=== PATIENT | female | born 1990 | race Caucasian/White ===

== ENCOUNTER 2017-10-09 10:47 | Emergency (ER) | payer MEDICARE, MEDICAID ==
[~2017-10-09] VITALS: Ht 160 cm; Wt 45.0 kg
[~2017-10-09 10:47] MED LIST: CYCL-1 PO; SUCR1ORA2 PO
[2017-10-09 13:09] VITALS: BP 138/62
== END 2017-10-09 13:09 | disposition home or self-care (01) ==
LOC: ER 10:48
DX: M79.652 Pain in left thigh (principal)
CPT/HCPCS: 73552; 99284

== ENCOUNTER 2017-10-09 13:25 | Emergency (ER) | payer OTHER, MEDICARE, MEDICAID ==
[~2017-10-09] VITALS: Ht 160 cm; Wt 45.0 kg
[2017-10-09 15:31] VITALS: BP 127/69
== END 2017-10-09 15:32 | disposition home or self-care (01) ==
LOC: ER 13:31
DX: Z00.00 Encounter for general adult medical examination without abnormal findings (principal)
CPT/HCPCS: 99281

== ENCOUNTER 2019-05-02 04:14 | Emergency (ER) | payer MEDICARE, MEDICAID ==
[~2019-05-02] VITALS: Ht 160 cm; Wt 46.8 kg
[~2019-05-02 04:14] MED LIST changes: +DIFL500T PO
[2019-05-02 04:16] VITALS: BP 126/94
--- NOTE | 2019-05-02 04:49 | NUR ---
PT REPORTS CALLING PMD, WARREN ARGUELLO AT [facility], DURING MIDDLE OF NIGHT AND STATES SAUNDRA TOLD HER TO GO TO [facility] ER DUE TO HER SYMPTOMS AND ALL MEDICAL RECORDS AT [facility]. PT ORIENTED THAT SHE IS AT [facility] AND PT BEGAN CRYING STATING SHE IS IN SO MUCH PAIN SHE JUST CAME TO NEAREST ER. DURING ASSESSMENT PT HAD TANGENTIAL THOUGHT PROCESSES. PT CC "SPLEEN PAIN", POINTING TO RIGHT LOWER QUADRANT, "THAT MOVES UP TO LEFT ARMPIT". PT REPORTS FEELINGS THAT "SPLEEN IS FULL OF SEPTIC". UPON PALPATION OF ARMPIT, PT REPORTS BURSITIS IN SHOULDER AND KNEES. PT THEN STATED "I HAD TO CALL APD ON MY DOCTOR AT [facility]" AND THAT SHE SEES A COUNSELOR NEARBY. PT THEN STATES "SOMEONE PEED IN ME AND NOW I KNOW I HAVE UTI". PT DENIES SUBSTANCE USE, BUT STATES HOSPITALIZED 19 YEARS AGO AND IN ICU FOR A WEEK - PT COULDNT STATE FOR WHAT SPECIFIC DISEASE/ILLNESS.
[2019-05-02 05:07] LABS: COLOR,URINE YELLOW (Yellow); GLUCOSE, URINE NEGATIVE (Neg); KETONES,URINE NEGATIVE (Neg); LEUKOCYTE ESTERASE ,URINE NEGATIVE (Neg); NITRITES, URINE NEGATIVE (Neg); OCCULT BLOOD,URINE LARGE (Neg); PROTEIN,URINE TRACE mg/dl (Neg)
[2019-05-02 05:11] LABS: BACTERIA,URINE FEW /HPF (Neg); CAL OXALATE CRYSTALS 2+ /HPF (NEGATIVE); CLARITY,URINE SLIGHTLY CLOUDY (Clear); SQUAMOUS EPITHELIAL CELL,UR FEW /LPF (FEW); UA COLLECTION TYPE CLN CATCH MIDSTREAM; WBC,URINE NONE SEEN /HPF (0-4)
[2019-05-02 05:21] LABS: URINE HCG NEGATIVE (NEG)
[2019-05-02 05:31] LABS: URINE AMPHETAMINE SCREEN NEGATIVE (Neg); URINE BARBITUATE SCREEN NEGATIVE (Neg); URINE BENZODIAZEPINES SCREEN NEGATIVE (Neg); URINE CANNABINOID SCREEN POSITIVE (Neg); URINE COCAINE SCREEN NEGATIVE (Neg); URINE METHADONE SCREEN NEGATIVE (Neg); URINE OPIATE SCREEN NEGATIVE (Neg); URINE PHENCYCLIDINE SCREEN NEGATIVE (Neg)
== END 2019-05-02 05:39 | disposition home or self-care (01) ==
LOC: ER 04:15
DX: R10.31 Right lower quadrant pain (principal); R07.89 Other chest pain; R20.2 Paresthesia of skin; J13 Pneumonia due to Streptococcus pneumoniae; G89.29 Other chronic pain; Z79.899 Other long term (current) drug therapy
CPT/HCPCS: 80305; 81001; 81025; 99283

== ENCOUNTER 2020-03-14 07:49 | Day surgery (SDC) | payer MEDICARE, MEDICAID ==
[2020-03-06 12:12] LABS: BASOPHILS % (AUTO) 0.6 % (0-1); EOSINOPHILS # (AUTO) 0.4 X10'3 (0-0.9); EOSINOPHILS % (AUTO) 6.6 % (0-6); LYMPHOCYTES # (AUTO) 1.6 X10'3 (1.1-4.8); LYMPHOCYTES % (AUTO) 26.7 % (21-51); MEAN CORPUSCULAR HEMOGLOBIN 31.8 PG (27.0-31.0); MEAN CORPUSCULAR HGB CONC 33.1 g/dL (33.0-36.5); MEAN CORPUSCULAR VOLUME 95.9 FL (78-98); MEAN PLATELET VOLUME 8.6 FL (7.4-10.4); MONOCYTES # (AUTO) 0.5 X10'3 (0-0.9); MONOCYTES % (AUTO) 7.3 % (2-12); NEUTROPHILS # (AUTO) 3.6 X10'3 (1.8-7.7); NEUTROPHILS % (AUTO) 58.8 % (42-75); PRE OP HEMOGLOBIN 13.6 g/dL (12.0-16.0); PRE OP PLATELET COUNT 315 X10'3 (140-440); RED BLOOD COUNT 4.28 X10'6 (4.20-5.60); RED CELL DISTRIBUTION WIDTH 12.8 % (11.5-14.5)
[2020-03-06 12:20] LABS: PRE OP PROTIME 10.5 SECONDS (9.0-12.0)
[2020-03-06 12:26] LABS: ALBUMIN 4.1 G/DL (3.4-5.0); ALBUMIN/GLOBULIN RATIO 1.1 (1.1-1.5); ALKALINE PHOSPHATASE 65 IU/L (46-116); BLOOD UREA NITROGEN 14 MG/DL (7-18); BUN/CREATININE RATIO 20.9 (6.6-38.0); CHLORIDE 105 MMOL/L (99-107); CREATININE 0.67 MG/DL (0.40-0.90); PRE OP ALT 16 U/L (30-65); PRE OP ANION GAP 9 (8-16); PRE OP AST 16 U/L (10-37); PRE OP BILIRUB, TOTAL 0.4 MG/DL (0.0-1.0); PRE OP GLUCOSE 84 MG/DL (70-104); PRE OP POTASSIUM 3.9 MMOL/L (3.4-5.1); PRE OP SODIUM 141 MMOL/L (135-145); TOTAL CARBON DIOXIDE 27.4 MMOL/L (24-32); eGFR > 90 ML/MIN
[2020-03-14] VITALS (9 sets, daily range): BP systolic 109–147; BP diastolic 58–90
[~2020-03-14] VITALS: Ht 160 cm; Wt 61.4 kg
[~2020-03-14 07:49] MED LIST changes: +BUPIVAcaine 0.5% W/EPI /PF 30ml vial ONE; -CYCL-1 PO; -DIFL500T PO; +LIDOcaine 1% W/epiNEPHrine 1:100,000 20ml vial ONE; +NO HOME MEDS; -SUCR1ORA2 PO; +cefTAZidime 1gm inj ONE; +cocaine 4% topical solution 4ml bottle ONE; +famotidine 20mg tablet PO ONE; +methylPREDNISolone acetate 80mg/ml inj**IM only ONE; +mupirocin 2% ointment 22GM ONE; +oxymetazoline 15 ML nasal spray NS ONE; +ringers solution, lacted 1,000 ML IV SCH
[2020-03-14] MEDS ORDERED: ringers solution, lacted 1,000 ML IV SCH (10:46)
[2020-03-14] MEDS ORDERED: labetalol 20mg/4ml (5mg/ml) syringe IV PRN (10:50)
[2020-03-14] MEDS ORDERED: morphine 2 MG/ML inj. syringe IV PRN (10:50)
[2020-03-14] MEDS ORDERED: ondansetron/PF 4mg/2ml inj IV PRN (10:50)
[2020-03-14] MEDS ORDERED: hydrALAZINE 20mg/ml inj. IV PRN (10:50)
[2020-03-14] MEDS ORDERED: fentaNYL/PF 50MCG/1 ML 2ML syringe IV PRN ×2 (10:50)
[2020-03-14] MEDS ORDERED: morphine 4 MG/ML inj SYRINge IV PRN (10:50)
[2020-03-14] MEDS ORDERED: midazolam 2 mg/2 ml injection ONE ×2 (10:56→12:31)
[2020-03-14] MEDS ORDERED: fentaNYL/PF 50MCG/1 ML 2ML syringe ONE (10:56)
[2020-03-14] MEDS ORDERED: sevoflurane 250ml liquid IH ONE (10:57)
[2020-03-14] MEDS ORDERED: LIDOcaine 2% (20mg/ml) 5ml vial ONE (10:57)
[2020-03-14] MEDS ORDERED: propofol inj 20 ML IV ONE (10:57)
[2020-03-14] MEDS ORDERED: dexamethasone sod phosphate 10mg/ml inj ONE (10:57)
[2020-03-14] MEDS ORDERED: ondansetron/PF 4mg/2ml inj ONE (10:57)
[2020-03-14] MEDS ORDERED: morphine 10mg/ml inj. ONE (11:40)
[2020-03-14] MEDS ORDERED: labetalol 20mg/4ml (5mg/ml) syringe IV ONE (11:58)
--- NOTE | 2020-03-14 12:30 | NUR ---
Received from OR via BED , accompanied by Anesthesiologist DR HUTCHINSON and report given by Anesthesiolgist. PATIENT WAKING UP, DENIES PAIN, V/S WNL, CSM INTACT, 20G PIV TO RUE, COTTONOID PACKING TO BILATERALLY SINUSES WITH NO ACTIVE DRAINAGE VISABLE AT THIS TIME
[2020-03-14] MEDS ORDERED: salt irrigation nasal spray 45 ML SPRAY NS ONE (12:50)
--- NOTE | 2020-03-14 12:52 | NUR ---
PATIENT COMBATIVE AND TRYING TO CLIMB OUT OF BED, VERSED GIVEN SHORTLY AFTER ARRIVAL SEE EMAR. PATIENT RESTING CALMLY NOW
--- NOTE | 2020-03-14 13:40 | NUR ---
PATIENT SLEEPY BUT ORIENTED X4, DENIES PAIN, V/S WNL, CSM INTACT, 20G PIV TO RUE D/C, COTTONOID PACKING TO BILATERALLY SINUSES WAS D/C 30MIN AFTER ARRIVAL TO PACU AND CURRENTLY NO ACTIVE DRAINAGE VISABLE AT THIS TIME AFTER MEDS GIVEN PER DR MAYBERRY ORDERS PRIOR TO D/C. I HAVE REVIEWED D/C INSTRUCTIONS WITH PATIENT AND FAMILY AND THEY HAVE VERBALIZED UNDERSTANDING. PATIENT D/C HOME WITH ALL BELONGINGS AND FAMILY GAVE TRANSPORT HOME.
[2020-03-15] MEDS ORDERED: HYDR-3965 PO (02:30)
[2020-03-15] MEDS ORDERED: ONDA8TAB6 PO (02:30)
== END 2020-03-14 13:40 | disposition home or self-care (01) ==
LOC: PAS 07:49
PROVIDERS: ATTEND Otolaryngology
DX: J34.2 Deviated nasal septum (principal); J34.3 Hypertrophy of nasal turbinates; J32.8 Other chronic sinusitis; J33.8 Other polyp of sinus; Z11.59 Encounter for screening for other viral diseases; Z87.891 Personal history of nicotine dependence; G89.29 Other chronic pain; Z86.14 Personal history of Methicillin resistant Staphylococcus aureus infection; Z79.01 Long term (current) use of anticoagulants; Z79.899 Other long term (current) drug therapy
CPT/HCPCS: 30140; 30520; 31255; 36415; 61782; 80053; 82948; 85025; 85576; 85610; 85730; 87635; 93005; A6402; C9250; C9803; J0713; J1040; J1100; J2001; J2250; J2270; J2405; J2704; J3010; J7040; J7120; U0003; A4618; A7000; J3490

== ENCOUNTER 2020-03-15 02:02 | Emergency (ER) | payer MEDICARE, MEDICAID ==
[~2020-03-15] VITALS: Ht 160 cm; Wt 62.7 kg
[~2020-03-15 02:02] MED LIST changes: -BUPIVAcaine 0.5% W/EPI /PF 30ml vial ONE; -LIDOcaine 1% W/epiNEPHrine 1:100,000 20ml vial ONE; -cefTAZidime 1gm inj ONE; -cocaine 4% topical solution 4ml bottle ONE; -famotidine 20mg tablet PO ONE; -methylPREDNISolone acetate 80mg/ml inj**IM only ONE; -mupirocin 2% ointment 22GM ONE; -oxymetazoline 15 ML nasal spray NS ONE; -ringers solution, lacted 1,000 ML IV SCH
[2020-03-15] MEDS ORDERED: morphine 4 MG/ML inj SYRINge IM ONE (02:30)
[2020-03-15] MEDS ORDERED: ondansetron 4mg rapidly disintigrating tab PO ONE (02:30)
[2020-03-15] MEDS ORDERED: ONDA8TAB6 PO (02:30)
[2020-03-15] MEDS ORDERED: HYDR-3965 PO (02:30)
[2020-03-15 03:00] VITALS: BP 130/77
== END 2020-03-15 03:20 | disposition home or self-care (01) ==
LOC: ER 02:02
DX: G89.18 Other acute postprocedural pain (principal); J34.89 Other specified disorders of nose and nasal sinuses; G89.29 Other chronic pain; Z87.01 Personal history of pneumonia (recurrent); Z98.890 Other specified postprocedural states; Z79.899 Other long term (current) drug therapy
CPT/HCPCS: 96372; 99283; J2270

== ENCOUNTER 2020-04-11 10:00 | Day surgery (SDC) | payer MEDICARE, MEDICAID ==
[2020-04-05 09:24] LABS: BASOPHILS # (AUTO) 0.1 X10'3 (0-0.2); BASOPHILS % (AUTO) 0.5 % (0-1); EOSINOPHILS # (AUTO) 0.3 X10'3 (0-0.9); EOSINOPHILS % (AUTO) 1.8 % (0-6); LYMPHOCYTES # (AUTO) 2.8 X10'3 (1.1-4.8); LYMPHOCYTES % (AUTO) 18.8 % (21-51); MEAN CORPUSCULAR HGB CONC 33.1 g/dL (33.0-36.5); MEAN CORPUSCULAR VOLUME 96.4 FL (78-98); MEAN PLATELET VOLUME 7.2 FL (7.4-10.4); MONOCYTES % (AUTO) 6.5 % (2-12); NEUTROPHILS # (AUTO) 10.6 X10'3 (1.8-7.7); NEUTROPHILS % (AUTO) 72.4 % (42-75); PRE OP HEMATOCRIT 41.6 % (35.0-45.0); PRE OP HEMOGLOBIN 13.8 g/dL (12.0-16.0); PRE OP PLATELET COUNT 413 X10'3 (140-440); RED BLOOD COUNT 4.31 X10'6 (4.20-5.60); RED CELL DISTRIBUTION WIDTH 13.5 % (11.5-14.5)
[2020-04-05 09:37] LABS: PRE OP PROTIME 9.8 SECONDS (9.0-12.0)
[2020-04-05 09:43] LABS: ALBUMIN 3.8 G/DL (3.4-5.0); ALBUMIN/GLOBULIN RATIO 0.9 (1.1-1.5); ALKALINE PHOSPHATASE 71 IU/L (46-116); BLOOD UREA NITROGEN 17 MG/DL (7-18); CALCIUM 9.3 MG/DL (8.5-10.1); CHLORIDE 102 MMOL/L (99-107); CREATININE 0.63 MG/DL (0.40-0.90); PRE OP ALT 22 U/L (30-65); PRE OP ANION GAP 8 (8-16); PRE OP AST 10 U/L (10-37); PRE OP BILIRUB, TOTAL 0.3 MG/DL (0.0-1.0); PRE OP GLUCOSE 82 MG/DL (70-104); PRE OP POTASSIUM 3.4 MMOL/L (3.4-5.1); PRE OP SODIUM 140 MMOL/L (135-145); TOTAL CARBON DIOXIDE 30.3 MMOL/L (24-32); TOTAL PROTEIN 8.2 G/DL (6.4-8.2); eGFR > 90 ML/MIN
[~2020-04-11] VITALS: Ht 160 cm; Wt 64.9 kg
[2020-04-11] VITALS (11 sets, daily range): BP systolic 128–148; BP diastolic 74–98
[~2020-04-11 10:00] MED LIST changes: +LIDOcaine 1% W/epiNEPHrine 1:100,000 20ml vial ONE; -NO HOME MEDS; +PRED10TA23 PO; +cefTAZidime 1gm inj ONE; +cocaine 4% topical solution 4ml bottle ONE; +famotidine 20mg tablet PO ONE; +methylPREDNISolone acetate 80mg/ml inj**IM only ONE; +mupirocin 2% ointment 22GM ONE; +oxymetazoline 15 ML nasal spray NS ONE; +oxymetazoline 15 ML nasal spray NS PRN; +ringers solution, lacted 1,000 ML IV SCH
[2020-04-11] MEDS ORDERED: oxymetazoline 15 ML nasal spray NS PRN (10:35)
[2020-04-11] MEDS ORDERED: ringers solution, lacted 1,000 ML IV SCH (13:03)
[2020-04-11] MEDS ORDERED: acetaminophen 1,000mg/100ml IV 100 ML IV PRN (13:05)
[2020-04-11] MEDS ORDERED: proCHLORperazine 10 MG/2 ml inj IV PRN (13:05)
[2020-04-11] MEDS ORDERED: morphine 2 MG/ML inj. syringe IV PRN (13:05)
[2020-04-11] MEDS ORDERED: meperidine/PF 25mg/ml syringe IV PRN ×3 (13:05)
[2020-04-11] MEDS ORDERED: morphine 4 MG/ML inj SYRINge IV PRN (13:05)
[2020-04-11] MEDS ORDERED: labetalol 20mg/4ml (5mg/ml) syringe IV PRN (13:05)
[2020-04-11] MEDS ORDERED: ondansetron/PF 4mg/2ml inj IV PRN (13:05)
[2020-04-11] MEDS ORDERED: hydrALAZINE 20mg/ml inj. IV PRN (13:05)
[2020-04-11] MEDS ORDERED: sevoflurane 250ml liquid IH ONE (13:15)
[2020-04-11] MEDS ORDERED: fentaNYL/PF 50MCG/1 ML 2ML syringe ONE (13:18)
[2020-04-11] MEDS ORDERED: midazolam 2 mg/2 ml injection ONE (13:18)
[2020-04-11] MEDS ORDERED: LIDOcaine 2% (20mg/ml) 5ml vial ONE (13:36)
[2020-04-11] MEDS ORDERED: propofol inj 20 ML IV ONE (13:36)
[2020-04-11] MEDS ORDERED: dexamethasone sod phosphate 4mg/ml inj. ONE (13:40)
[2020-04-11] MEDS ORDERED: ondansetron/PF 4mg/2ml inj ONE (13:42)
--- NOTE | 2020-04-11 15:27 | NUR ---
Received from OR via SHADY , accompanied by Anesthesiologist SHI and report given by Anesthesiolgist. PATIENT WITH COTTONOIDS PRESENT AND A PIV 22G IN RIGHT AC. VSS. DENIES PAIN. Addendum: 04/11/20 at 1544 by Blas Alcaraz RN, RN Amended: Links added.
[2020-04-11] MEDS ORDERED: salt irrigation nasal spray 45 ML SPRAY NS PRN (16:15)
--- NOTE | 2020-04-11 17:07 | NUR ---
I HAVE REVIEWED D/C INSTRUCTIONS WITH PATIENT AND FAMILY AND THEY HAVE VERBALIZED UNDERSTANDING. PATIENT D/C HOME WITH ALL BELONGINGS AND FAMILY GAVE TRANSPORT HOME. Addendum: 04/11/20 at 1708 by Blas Alcaraz RN, RN Amended: Links added.
== END 2020-04-11 17:07 | disposition home or self-care (01) ==
LOC: PAS 10:00
PROVIDERS: ATTEND Otolaryngology
DX: J32.8 Other chronic sinusitis (principal); J33.8 Other polyp of sinus; Z11.59 Encounter for screening for other viral diseases; Z79.01 Long term (current) use of anticoagulants; Z87.891 Personal history of nicotine dependence; Z98.890 Other specified postprocedural states; Z86.14 Personal history of Methicillin resistant Staphylococcus aureus infection; Z79.899 Other long term (current) drug therapy
CPT/HCPCS: 31253; 31259; 31267; 36415; 61782; 80053; 82948; 85025; 85576; 85610; 85730; 87070; 87075; 87635; C9803; J0713; J1040; J1100; J2001; J2175; J2250; J2270; J2405; J2704; J3010; J7040; U0003; 87077; 87186; A4618; A7000; J7120

== ENCOUNTER 2021-08-28 17:36 | Emergency (ER) | payer MEDICARE, MEDICAID ==
[~2021-08-28] VITALS: Ht 160 cm; Wt 80.0 kg
[~2021-08-28 17:36] MED LIST changes: -LIDOcaine 1% W/epiNEPHrine 1:100,000 20ml vial ONE; -cefTAZidime 1gm inj ONE; -cocaine 4% topical solution 4ml bottle ONE; -famotidine 20mg tablet PO ONE; -methylPREDNISolone acetate 80mg/ml inj**IM only ONE; -mupirocin 2% ointment 22GM ONE; -oxymetazoline 15 ML nasal spray NS ONE; -oxymetazoline 15 ML nasal spray NS PRN; -ringers solution, lacted 1,000 ML IV SCH
[2021-08-28 18:42] VITALS: BP 123/80
[2021-08-28] MEDS ORDERED: ketorolac tromethamine 15mg/ml inj. IM ONE (19:00)
[2021-08-28] MEDS ORDERED: ketorolac trometh. 30mg/ml inj. IM ONE (19:00)
[2021-08-28] MEDS ORDERED: GABA-530 PO (19:10)
== END 2021-08-28 19:18 | disposition home or self-care (01) ==
LOC: ER 17:37
DX: M54.2 Cervicalgia (principal); G89.29 Other chronic pain; Z87.01 Personal history of pneumonia (recurrent); Z98.890 Other specified postprocedural states; Z79.899 Other long term (current) drug therapy
CPT/HCPCS: 99283

== ENCOUNTER 2021-10-22 16:55 | Emergency (ER) | payer MEDICARE, MEDICAID ==
[~2021-10-22] VITALS: Ht 160 cm; Wt 86.4 kg
[~2021-10-22 16:55] MED LIST changes: +GABA-530 PO
[2021-10-22 17:02] VITALS: BP 127/87
[2021-10-22] MEDS ORDERED: ibuprofen tablet 400 MG TABLET PO ONE (17:05)
[2021-10-22] MEDS ORDERED: TETanus/Pertussis (Acell)/Diphther VAC/PF (Tdap-Adult) 0.5ml syringe IMVAC ONE (17:05)
[2021-10-22] MEDS ORDERED: AMOX-117 PO (17:45)
== END 2021-10-22 18:35 | disposition home or self-care (01) ==
LOC: ER 16:55
DX: S61.250A Open bite of right index finger without damage to nail, initial encounter (principal); S61.051A Open bite of right thumb without damage to nail, initial encounter; Z87.01 Personal history of pneumonia (recurrent); G89.29 Other chronic pain; Z79.2 Long term (current) use of antibiotics; Z79.899 Other long term (current) drug therapy; W54.0XXA Bitten by dog, initial encounter; Y93.89 Activity, other specified; Y92.89 Other specified places as the place of occurrence of the external cause; Y99.8 Other external cause status
CPT/HCPCS: 73140; 90471; 90715; 99283

== ENCOUNTER 2023-05-10 19:26 | Emergency (ER) | payer MEDICARE, MEDICAID ==
[~2023-05-10] VITALS: Ht 157.5 cm; Wt 53.8 kg
[2023-05-10 19:41] VITALS: TEMP 98.8
[2023-05-10 23:02] VITALS: BP 114/72; PULSE 66; RESP 16; O2SAT 100
[2023-05-11] MEDS ORDERED: dexamethasone 4mg tablet PO ONE
[2023-05-11] MEDS ORDERED: diphenhydrAMINE 25 MG/10 ML UD oral solution PO ONE
== END 2023-05-11 00:13 | disposition home or self-care (01) ==
LOC: ER 19:27
DX: R09.82 Postnasal drip (principal); J02.8 Acute pharyngitis due to other specified organisms; Z79.899 Other long term (current) drug therapy
CPT/HCPCS: 99283; Q0163

== ENCOUNTER 2023-11-16 14:44 | Emergency (ER) | payer MEDICARE, MEDICAID ==
[~2023-11-16] VITALS: Ht 152.4 cm; Wt 58.0 kg
[~2023-11-16 14:44] MED LIST changes: +PRED50TA PO
[2023-11-16 14:59] VITALS: TEMP 98
[2023-11-16 15:23] VITALS: BP 139/85; PULSE 54; RESP 17; O2SAT 100
== END 2023-11-16 16:07 | disposition home or self-care (01) ==
LOC: ER 14:44
DX: R20.0 Anesthesia of skin (principal); K21.9 Gastro-esophageal reflux disease without esophagitis; Z79.899 Other long term (current) drug therapy; Z79.52 Long term (current) use of systemic steroids
CPT/HCPCS: 99282

== ENCOUNTER 2023-11-19 13:29 | Outpatient (CLI) | payer MEDICARE, MEDICAID | END 2023-11-19 23:59 | disposition home or self-care (01) | LOC: RAD 13:29 | PROVIDERS: ATTEND Internal Medicine Gastroenterology | DX: R13.14 Dysphagia, pharyngoesophageal phase (principal) | CPT/HCPCS: 74230 ==

== ENCOUNTER 2024-04-23 10:17 | Emergency (ER) | payer MEDICARE, MEDICAID ==
[~2024-04-23] VITALS: Ht 157.5 cm; Wt 60.9 kg
[2024-04-23] MEDS: triamcinolone acetonide 40mg/ml inj IM ONE (11:12)
[2024-04-23 11:36] VITALS: BP 128/79; PULSE 55; RESP 16; TEMP 98.7; O2SAT 98
== END 2024-04-23 11:38 | disposition home or self-care (01) ==
LOC: ER 10:18
DX: R21 Rash and other nonspecific skin eruption (principal); K21.9 Gastro-esophageal reflux disease without esophagitis; G89.29 Other chronic pain; M54.9 Dorsalgia, unspecified; Z98.890 Other specified postprocedural states; Z60.2 Problems related to living alone
CPT/HCPCS: 96372; 99283; J3301

== ENCOUNTER 2024-06-27 08:52 | Emergency (ER) | payer MEDICARE, MEDICAID ==
[~2024-06-27] VITALS: Ht 157.5 cm; Wt 66.3 kg
[2024-06-27] MEDS: LIDOcaine 1% 30ml preserv. free vial SQ STA (10:57)
[2024-06-27] MEDS: acetaminophen 325mg tablet PO ONE (11:20)
[2024-06-27] MEDS: ampicill/sulbac 1.5gm/NS 100ml 100 ML IV ONE (11:26)
[2024-06-27] MEDS: diphenhydrAMINE 50 mg/ml inj IV ONE (12:14)
[2024-06-27] MEDS: morphine 4 MG/ML inj SYRINge IV ONE ×2 (12:14→14:17)
[2024-06-27 13:08] VITALS: BP 138/76; PULSE 62; TEMP 98.4; O2SAT 99
[2024-06-27] MEDS ORDERED: IBUP-1984 PO (13:33)
[2024-06-27] MEDS ORDERED: AMOX-580 PO (13:33)
[2024-06-27] MEDS ORDERED: ACET-2 PO (13:33)
[2024-06-27 14:17] VITALS: RESP 16
== END 2024-06-27 15:03 | disposition home or self-care (01) ==
LOC: ER 08:52
DX: S61.012A Laceration without foreign body of left thumb without damage to nail, initial encounter (principal); S01.81XA Laceration without foreign body of other part of head, initial encounter; G89.29 Other chronic pain; K21.9 Gastro-esophageal reflux disease without esophagitis; Z79.2 Long term (current) use of antibiotics; Z79.1 Long term (current) use of non-steroidal anti-inflammatories (NSAID); Z79.899 Other long term (current) drug therapy; W54.0XXA Bitten by dog, initial encounter; Y93.89 Activity, other specified; Y92.89 Other specified places as the place of occurrence of the external cause; Y99.8 Other external cause status
CPT/HCPCS: 12001; 12052; 73140; 96365; 96375; 96376; 99285; A6258; A6402; A6446; J0295; J1200; J2270; J7030; Z7610; A6449

== ENCOUNTER 2024-06-29 05:37 | Emergency (ER) | payer MEDICARE, MEDICAID ==
[~2024-06-29] VITALS: Ht 157.5 cm; Wt 63.6 kg
[~2024-06-29 05:37] MED LIST changes: +ACET-2 PO; +AMOX-580 PO; +IBUP-1984 PO
[2024-06-29 08:04] VITALS: BP 115/70; PULSE 65; O2SAT 100
[2024-06-29] MEDS ORDERED: AMOX-117 PO (10:32)
[2024-06-29] MEDS ORDERED: HYDR-3965 PO (10:32)
[2024-06-29 10:53] VITALS: RESP 16
[2024-06-29] MEDS: HYDROcodone/acetaminophen 10/325mg tab PO ONE (10:53)
[2024-06-29 10:55] VITALS: TEMP 97.6
== END 2024-06-29 10:59 | disposition home or self-care (01) ==
LOC: ER 05:38
DX: S61.052D Open bite of left thumb without damage to nail, subsequent encounter (principal); S01.85XD Open bite of other part of head, subsequent encounter; K21.9 Gastro-esophageal reflux disease without esophagitis; G89.29 Other chronic pain; M54.9 Dorsalgia, unspecified; Z79.2 Long term (current) use of antibiotics; Z79.1 Long term (current) use of non-steroidal anti-inflammatories (NSAID); Z79.52 Long term (current) use of systemic steroids; Z60.2 Problems related to living alone; W54.0XXD Bitten by dog, subsequent encounter
CPT/HCPCS: 99283

== ENCOUNTER 2024-07-01 17:22 | Emergency (ER) | payer MEDICARE, MEDICAID ==
[~2024-07-01] VITALS: Ht 157.5 cm; Wt 63.6 kg
[~2024-07-01 17:22] MED LIST changes: +AMOX-117 PO; +HYDR-3965 PO
[2024-07-01 17:25] VITALS: BP 134/74; PULSE 70; RESP 14; TEMP 97.4; O2SAT 97
== END 2024-07-01 17:55 | disposition home or self-care (01) ==
LOC: ER 17:23
DX: S01.81XD Laceration without foreign body of other part of head, subsequent encounter (principal); S61.012D Laceration without foreign body of left thumb without damage to nail, subsequent encounter; K21.9 Gastro-esophageal reflux disease without esophagitis; G89.29 Other chronic pain; Z79.899 Other long term (current) drug therapy; W54.0XXD Bitten by dog, subsequent encounter
CPT/HCPCS: 99281

== ENCOUNTER 2024-07-05 13:18 | Emergency (ER) | payer MEDICARE, MEDICAID ==
[~2024-07-05] VITALS: Ht 157.5 cm; Wt 63.6 kg
[~2024-07-05 13:18] MED LIST changes: -ACET-2 PO
[2024-07-05 14:51] VITALS: BP 112/60; PULSE 70; RESP 16; TEMP 97.9; O2SAT 97
== END 2024-07-05 14:54 | disposition home or self-care (01) ==
LOC: ER 13:19
DX: Z48.00 Encounter for change or removal of nonsurgical wound dressing (principal); M79.645 Pain in left finger(s); Z79.1 Long term (current) use of non-steroidal anti-inflammatories (NSAID); Z79.52 Long term (current) use of systemic steroids; Z79.2 Long term (current) use of antibiotics; K21.9 Gastro-esophageal reflux disease without esophagitis; G89.29 Other chronic pain; M54.9 Dorsalgia, unspecified; Z60.2 Problems related to living alone
CPT/HCPCS: 99282

== ENCOUNTER 2024-07-15 12:41 | Emergency (ER) | payer MEDICARE, MEDICAID ==
[~2024-07-15] VITALS: Ht 162.6 cm; Wt 65.9 kg
[~2024-07-15 12:41] MED LIST changes: -AMOX-117 PO
[2024-07-15] MEDS: ketorolac trometh 15mg/ml vial 15 MG/ML ML IM ONE (13:09)
[2024-07-15] MEDS ORDERED: METH4TAB81 PO (13:16)
[2024-07-15] MEDS ORDERED: CYCL-1 PO (13:16)
[2024-07-15] MEDS ORDERED: HYDR-3965 PO (13:16)
[2024-07-15 13:39] VITALS: BP 130/71; PULSE 63; RESP 16; TEMP 98; O2SAT 100
== END 2024-07-15 13:41 | disposition home or self-care (01) ==
LOC: ER 12:42
DX: M43.6 Torticollis (principal); M54.2 Cervicalgia; G43.909 Migraine, unspecified, not intractable, without status migrainosus; K21.9 Gastro-esophageal reflux disease without esophagitis; G89.29 Other chronic pain; Z79.2 Long term (current) use of antibiotics; Z79.1 Long term (current) use of non-steroidal anti-inflammatories (NSAID); Z79.899 Other long term (current) drug therapy
CPT/HCPCS: 96372; 99284; J1885

== ENCOUNTER 2024-07-29 09:00 | Emergency (ER) | payer MEDICARE, MEDICAID ==
[~2024-07-29] VITALS: Ht 157.5 cm; Wt 63.7 kg
[~2024-07-29 09:00] MED LIST changes: -AMOX-580 PO; +CYCL-1 PO; -IBUP-1984 PO; +METH4TAB81 PO
[2024-07-29 09:12] VITALS: BP 137/76; PULSE 55; RESP 16; TEMP 98; O2SAT 100
[2024-07-29] MEDS: dexamethasone sod phosphate 10mg/ml inj IM STA (09:41)
[2024-07-29] MEDS ORDERED: PRED50TA PO (09:52)
[2024-07-29] MEDS ORDERED: METH-798 PO (09:53)
== END 2024-07-29 12:00 | disposition home or self-care (01) ==
LOC: ER 09:01
DX: M43.6 Torticollis (principal); G43.909 Migraine, unspecified, not intractable, without status migrainosus; K21.9 Gastro-esophageal reflux disease without esophagitis; G89.29 Other chronic pain; M54.9 Dorsalgia, unspecified; Z60.2 Problems related to living alone; Z79.899 Other long term (current) drug therapy; Z79.52 Long term (current) use of systemic steroids
CPT/HCPCS: 96372; 99284; J1100

== ENCOUNTER 2024-08-11 10:33 | Emergency (ER) | payer MEDICARE, MEDICAID ==
[~2024-08-11] VITALS: Ht 157.5 cm; Wt 63.0 kg
[~2024-08-11 10:33] MED LIST changes: +METH-798 PO
[2024-08-11 10:38] VITALS: TEMP 98.5
[2024-08-11] MEDS: ketorolac trometh 15mg/ml vial 15 MG/ML ML IM ONE (12:12)
[2024-08-11 12:15] VITALS: BP 116/86; PULSE 66; RESP 16; O2SAT 100
== END 2024-08-11 12:36 | disposition home or self-care (01) ==
LOC: ER 10:33
DX: G43.909 Migraine, unspecified, not intractable, without status migrainosus (principal); G44.209 Tension-type headache, unspecified, not intractable; K21.9 Gastro-esophageal reflux disease without esophagitis; Z98.890 Other specified postprocedural states
CPT/HCPCS: 96372; 99284; J1885

== ENCOUNTER 2024-09-02 12:45 | Emergency (ER) | payer MEDICARE, MEDICAID ==
[~2024-09-02] VITALS: Ht 157.5 cm; Wt 62.0 kg
[~2024-09-02 12:45] MED LIST changes: -HYDR-3965 PO
[2024-09-02 12:54] VITALS: TEMP 98.2
[2024-09-02 13:15] LABS: BASOPHILS % (AUTO) 0.5 % (0-1); EOSINOPHILS # (AUTO) 0.1 X10'3 (0-0.9); EOSINOPHILS % (AUTO) 0.6 % (0-6); HEMATOCRIT 37.5 % (35.0-45.0); HEMOGLOBIN 12.9 g/dl (12.0-16.0); LYMPHOCYTES % (AUTO) 23.7 % (21-51); MEAN CORPUSCULAR HEMOGLOBIN 33.6 PG (27.0-31.0); MEAN CORPUSCULAR HGB CONC 34.5 g/dL (33.0-36.5); MEAN CORPUSCULAR VOLUME 97.6 FL (78-98); MEAN PLATELET VOLUME 7.8 FL (7.4-10.4); MONOCYTES # (AUTO) 0.6 X10'3 (0-0.9); MONOCYTES % (AUTO) 7.3 % (2-12); NEUTROPHILS # (AUTO) 5.8 X10'3 (1.8-7.7); NEUTROPHILS % (AUTO) 67.9 % (42-75); PLATELET COUNT 411 X10'3 (140-440); RED BLOOD COUNT 3.84 X10'6 (4.20-5.60); RED CELL DISTRIBUTION WIDTH 12.8 % (11.5-14.5); WHITE BLOOD COUNT 8.5 X10'3 (4.5-11.0)
[2024-09-02 13:49] LABS: ALANINE AMINOTRANSFERASE 15 U/L (12-78); ALBUMIN 3.9 G/DL (3.4-5.0); ALKALINE PHOSPHATASE 58 IU/L (46-116); ANION GAP 8 (8-16); ASPARTATE AMINO TRANSFERASE 10 U/L (10-37); BILIRUBIN,TOTAL 0.3 MG/DL (0.1-1.0); BLOOD UREA NITROGEN 16 MG/DL (7-18); BUN/CREATININE RATIO 19.5 (10.0-20.0); CALCIUM 9.2 MG/DL (8.5-10.1); CHLORIDE 103 MMOL/L (99-107); CREATININE 0.82 MG/DL (0.40-0.90); GLUCOSE 125 MG/DL (70-104); POTASSIUM 3.4 MMOL/L (3.5-5.1); SODIUM 139 MMOL/L (135-145); TOTAL CARBON DIOXIDE 28.5 MMOL/L (24-32); TOTAL PROTEIN 7.7 G/DL (6.4-8.2); eCRCL 75 ML/MIN; eGFR 79 ML/MIN
[2024-09-02 14:00] LABS: PRO BRAIN NATRIURETIC PEPTIDE 77 PG/ML (0-125)
[2024-09-02] MEDS: normal saline 1000ml 1,000 ML IV ONE (15:55)
[2024-09-02 17:34] VITALS: BP 131/74; PULSE 78; RESP 17; O2SAT 98
== END 2024-09-02 17:35 | disposition home or self-care (01) ==
LOC: ER 12:46
DX: R42 Dizziness and giddiness (principal); K21.9 Gastro-esophageal reflux disease without esophagitis; Z98.890 Other specified postprocedural states
CPT/HCPCS: 36415; 71045; 80053; 83880; 84484; 85025; 93005; 96360; 99285; J7030

== ENCOUNTER 2024-09-29 16:34 | Emergency (ER) | payer MEDICARE, MEDICAID ==
[~2024-09-29] VITALS: Ht 157.5 cm; Wt 63.2 kg
[2024-09-29 16:39] VITALS: TEMP 98
[2024-09-29 17:59] LABS: BASOPHILS % (AUTO) 0.3 % (0-1); EOSINOPHILS % (AUTO) 0.1 % (0-6); HEMATOCRIT 37.9 % (35.0-45.0); HEMOGLOBIN 12.8 g/dl (12.0-16.0); LYMPHOCYTES # (AUTO) 1.6 X10'3 (1.1-4.8); LYMPHOCYTES % (AUTO) 14.1 % (21-51); MEAN CORPUSCULAR HEMOGLOBIN 32.4 PG (27.0-31.0); MEAN CORPUSCULAR HGB CONC 33.7 g/dL (33.0-36.5); MEAN CORPUSCULAR VOLUME 96.1 FL (78-98); MEAN PLATELET VOLUME 8.1 FL (7.4-10.4); MONOCYTES # (AUTO) 0.7 X10'3 (0-0.9); MONOCYTES % (AUTO) 5.8 % (2-12); NEUTROPHILS # (AUTO) 9.2 X10'3 (1.8-7.7); NEUTROPHILS % (AUTO) 79.7 % (42-75); PLATELET COUNT 322 X10'3 (140-440); RED BLOOD COUNT 3.94 X10'6 (4.20-5.60); RED CELL DISTRIBUTION WIDTH 12.4 % (11.5-14.5); WHITE BLOOD COUNT 11.5 X10'3 (4.5-11.0)
[2024-09-29 18:10] LABS: ALANINE AMINOTRANSFERASE 19 U/L (12-78); ALBUMIN/GLOBULIN RATIO 1.2 (1.1-1.5); ALKALINE PHOSPHATASE 60 IU/L (46-116); ANION GAP 9 (8-16); ASPARTATE AMINO TRANSFERASE 13 U/L (10-37); BILIRUBIN,TOTAL 0.3 MG/DL (0.1-1.0); BLOOD UREA NITROGEN 11 MG/DL (7-18); BUN/CREATININE RATIO 17.2 (10.0-20.0); CALCIUM 9.5 MG/DL (8.5-10.1); CHLORIDE 103 MMOL/L (99-107); CREATININE 0.64 MG/DL (0.40-0.90); GLUCOSE 101 MG/DL (70-104); POTASSIUM 3.4 MMOL/L (3.5-5.1); SODIUM 139 MMOL/L (135-145); TOTAL CARBON DIOXIDE 27.2 MMOL/L (24-32); TOTAL PROTEIN 7.3 G/DL (6.4-8.2); eCRCL 96 ML/MIN; eGFR > 90 ML/MIN
[2024-09-29] MEDS ORDERED: HYDR-3686 PO (18:21)
[2024-09-29 18:42] VITALS: BP 131/87; PULSE 74; RESP 16; O2SAT 99
== END 2024-09-29 18:44 | disposition home or self-care (01) ==
LOC: ER 16:35
DX: F41.9 Anxiety disorder, unspecified (principal); K21.9 Gastro-esophageal reflux disease without esophagitis; G89.29 Other chronic pain; M54.9 Dorsalgia, unspecified; Z98.890 Other specified postprocedural states
CPT/HCPCS: 36415; 80053; 85025; 93005; 99284

== ENCOUNTER 2024-10-19 10:45 | Emergency (ER) | payer MEDICARE, MEDICAID ==
[~2024-10-19] VITALS: Ht 157.5 cm; Wt 60.0 kg
[2024-10-19 11:04] VITALS: TEMP 97.7
[2024-10-19] MEDS ORDERED: PRED20TA PO (12:36)
[2024-10-19] MEDS: dexamethasone sod phosphate 10mg/ml inj IM ONE (12:49)
[2024-10-19 13:15] VITALS: BP 114/83; PULSE 49; RESP 18; O2SAT 100
== END 2024-10-19 13:12 | disposition home or self-care (01) ==
LOC: ER 10:46
DX: M43.6 Torticollis (principal); G89.29 Other chronic pain; M54.9 Dorsalgia, unspecified; K21.9 Gastro-esophageal reflux disease without esophagitis; Z60.2 Problems related to living alone; Z79.899 Other long term (current) drug therapy
CPT/HCPCS: 96372; 99283; J1100

== ENCOUNTER 2024-10-22 23:24 | Emergency (ER) | payer MEDICARE, MEDICAID ==
[~2024-10-22] VITALS: Ht 157.5 cm; Wt 62.7 kg
[~2024-10-22 23:24] MED LIST changes: +PRED20TA PO
[2024-10-22 23:45] VITALS: BP 137/91; PULSE 56; RESP 17; O2SAT 99
[2024-10-23] MEDS: LIDOcaine 2% Viscous 15ml cup MM ONE (01:22)
[2024-10-23 01:26] VITALS: TEMP 97.8
[2024-10-23] MEDS: mag hydrox/Alum hydrox/simeth 30ml oral suspension PO ONE (01:26)
== END 2024-10-23 01:28 | disposition home or self-care (01) ==
LOC: ER 23:24
DX: R13.10 Dysphagia, unspecified (principal); K21.9 Gastro-esophageal reflux disease without esophagitis
CPT/HCPCS: 99283

== ENCOUNTER 2024-10-28 13:25 | Emergency (ER) | payer MEDICARE, MEDICAID ==
[~2024-10-28] VITALS: Ht 157.5 cm; Wt 61.8 kg
[~2024-10-28 13:25] MED LIST changes: -PRED20TA PO
[2024-10-28 13:40] VITALS: BP 140/77; PULSE 60; RESP 16; TEMP 97.5; O2SAT 98
[2024-10-28] MEDS: TETanus/Pertussis (Acell)/Diphther VAC/PF (Tdap-Adult) 0.5ml syringe IMVAC ONE (15:25)
[2024-10-28] MEDS ORDERED: AMOX-580 PO (16:08)
== END 2024-10-28 17:06 | disposition home or self-care (01) ==
LOC: ER 13:26
DX: S51.812A Laceration without foreign body of left forearm, initial encounter (principal); G89.29 Other chronic pain; K21.9 Gastro-esophageal reflux disease without esophagitis; Z79.899 Other long term (current) drug therapy; W54.0XXA Bitten by dog, initial encounter; Y93.89 Activity, other specified; Y92.89 Other specified places as the place of occurrence of the external cause; Y99.8 Other external cause status
CPT/HCPCS: 73090; 90715; 99283; G0008; 90471

== ENCOUNTER 2024-12-29 10:05 | Emergency (ER) | payer MEDICARE, MEDICAID ==
[~2024-12-29] VITALS: Ht 157.5 cm; Wt 57.3 kg
[2024-12-29 10:09] VITALS: BP 134/73; PULSE 54; RESP 14; O2SAT 100
[2024-12-29] MEDS ORDERED: IBUP-860 PO (10:58)
[2024-12-29] MEDS ORDERED: ACET-1025 PO (10:58)
[2024-12-29] MEDS ORDERED: AMOX875T10 PO (10:58)
[2024-12-29 11:03] VITALS: TEMP 98
== END 2024-12-29 11:05 | disposition home or self-care (01) ==
LOC: ER 10:06
DX: K04.7 Periapical abscess without sinus (principal)
CPT/HCPCS: 99283

== ENCOUNTER 2025-01-31 08:22 | Outpatient (CLI) | payer MEDICARE, MEDICAID ==
[~2025-01-31 08:22] MED LIST changes: +IBUP-860 PO
--- NOTE | 2025-01-31 12:37 | RADIOLOGY REPORT ---
CLINICAL INDICATION: PAIN IN RIGHT KNEE TECHNIQUE: Multiplanar, multisequence MRI of the right knee was performed without contrast. Contrast: None. COMPARISON: None FINDINGS: Joint space and synovium: There is no joint effusion, popliteal cyst or synovial thickening. Bones and articular cartilage: There is no evidence of acute fracture or bone marrow edema. The ali gnment is normal. The articular cartilage is preserved in the patellofemoral, medial and lateral fe morotibial compartments. Shallow trochlear sulcus and dominant lateral patellar facet. Menisci: The medial meniscus is intact. The lateral meniscus is intact. Tendons and ligaments: The tendons in the posterior knee are intact. The extensor mechanism is inta ct. The anterior cruciate ligament is intact. The posterior cruciate ligament is intact. The m edial collateral ligament and the lateral collateral ligament stabilizing complex are intact. Muscles: Regional muscles are preserved in bulk and signal characteristics. Other: None. IMPRESSION: 1. Findings suggesting trochlear dysplasia. No evidence of ligament, meniscus or acute osseous abnorm ality in the right knee.
--- NOTE | 2025-01-31 12:41 | RADIOLOGY REPORT ---
CLINICAL INDICATION: PAIN IN LEFT KNEE TECHNIQUE: Multiplanar, multisequence MRI of the left knee was performed without contrast. Contrast: None. COMPARISON: None FINDINGS: Joint space and synovium: There is no large joint effusion or synovitis. Aguilar's cyst measuring 3.3 cm. Bones and articular cartilage: There is no evidence of acute fracture or bone marrow edema. The ali gnment is normal. The articular cartilage is preserved in the patellofemoral, medial and lateral fe morotibial compartment. Menisci: There is a horizontal tear in the posterior horn of the medial meniscus. The lateral menisc us is intact. Tendons and ligaments: The tendons in the posterior knee are intact. The extensor mechanism is inta ct. The anterior cruciate ligament is intact. The posterior cruciate ligament is intact. The m edial collateral ligament and the lateral collateral ligament stabilizing complex are intact. Muscles: Regional muscles are preserved in bulk and signal characteristics. Other: Trace fluid in the deep infrapatellar bursa. IMPRESSION: 1. Horizontal tear of the posterior horn of the medial meniscus. 2. Aguilar's cyst. 3. Deep infrapatellar bursitis.
== END 2025-01-31 23:59 | disposition home or self-care (01) ==
LOC: MRI02 08:22
PROVIDERS: ATTEND Family Medicine Sports Medicine
DX: S83.242A Other tear of medial meniscus, current injury, left knee, initial encounter (principal); M54.6 Pain in thoracic spine; M77.9 Enthesopathy, unspecified; M25.561 Pain in right knee; M25.562 Pain in left knee; X58.XXXA Exposure to other specified factors, initial encounter; Y93.89 Activity, other specified; Y92.89 Other specified places as the place of occurrence of the external cause; Y99.8 Other external cause status
CPT/HCPCS: 73721

== ENCOUNTER 2025-03-13 15:10 | Emergency (ER) | payer MEDICARE, MEDICAID ==
[~2025-03-13] VITALS: Ht 162.6 cm; Wt 61.4 kg
[2025-03-13 15:12] VITALS: BP 135/82; PULSE 53; RESP 16; TEMP 97.5; O2SAT 99
--- NOTE | 2025-03-13 15:26 | Physician Documentation ---
History of Present Illness ~ Chief Complaint: See Chief Complaint Stated Complaint: DIZZY Time Seen by MD: 15:38 Primary Medical Doctor: STEVE PERKINS This is a 34-year-old female who presents with feeling of lightheadedness, headaches and dizziness for the past six months, patient reports she has seen a neurologist though is unhappy that her neurologist has not given her an answer t o what is causing her symptoms. Notes that she was recently started on topiramate to reduce frequency of headaches. This has been ineffective in reducing headache severity and frequency. She has also been worked up by cardiology, sees Dr. Ayala. Headaches occur almost daily, current headache rated at 6/10. Sees PT for BPPV. Patient is requesting IV fluids to make the b lurriness in my eyes drain away. Medication Reconciliation Allergies: Coded Allergies: No Known Allergies (Unverified , 12/29/24) Scheduled Cyclobenzaprine* (Cyclobenzaprine*), 1 TAB PO Q8H Gabapentin (Gabapentin), 1 CAP PO Q8H Methocarbamol (Methocarbamol), 1 TAB PO Q8H Methocarbamol (Methocarbamol), 1 TAB PO Q8H Methylprednisolone (Medrol Dosepak), 0 PO UD Prednisone (Prednisone), 1 TABLET PO QID, (Reported) Prednisone (Prednisone), 50 MG PO DAILY Prednisone (Prednisone), 1 TAB PO DAILY Scheduled PRN Ibuprofen (Ibu), 1 TAB PO Q4HPRN PRN for pain Past Medical History Past Medical History: *CARDIOVASCULAR*, Pneumonia, *GI/HEPATOBILIARY*, GERD, *MUSCULOSKELETAL*, Chronic Back Pain Past Surgical History: other Other Past Surgical History: Nasal surgery Alcohol Use: None Drug Use: none Lives with: Family, Alone Lives In: Home Physical Exam Vital Signs: Temperature: 97.5, Source: Temporal, Heart Rate: 53, Respiratory Rate: 16, BP: 135/82, Pulse Oximetry: 99, Weight: 61.360 Oxygen Flow Rate: 0 Physical Exam VITALS: Reviewed and as above. GENERAL: Alert, nontoxic appearing, no apparent distress. RESPIRATORY: No increased work of breathing, no respiratory distress, speaking in full clear sentences. Lungs clear to auscultation. CV: RRR no murmurs. GI: Abd non-tender with active bowel sounds. MUSCULOSKELETAL: SKIN: Good color. No rashes. NEURO: Cranial nerves II-XII intact to examination. No pronator drift. No facial droop. PSYCH: Good eye contact but does appear anxious. Progress Results/Orders Results/Orders Orders - NISHA AGEE MEDICAL DIRECTOR OCCUPATIONAL HEALTH * Iv Access / Saline Lock * (03/13/25 15:37) Normal Saline 1000ml (Sodium Chloride 10 (03/13/25 15:40) Medications Received in ER Medications (Trade) Dose Ordered Sig/Lisa Route PRN Reason Start Time Stop Time Status Last Admin Dose Admin Sodium Chloride 1,000 ml @ 1,000 mls/hr ONCE ONCE IV 03/13/25 15:40 03/13/25 16:39 03/13/25 16:08 1,000 MLS/HR Vital Signs 03/13/25 15:12 Temp 97.5 Pulse 53 Resp 16 B/P (MAP) 135/82 Pulse Ox 99 O2 Flow Rate 0 Medical Decision Making Findings MSE performed in triage and patient returned to ED lobby by nursing staff Additional Information This is a 34-year-old female with multiple health concerns who sees several different specialists. Today, her primary concern was that she may be dehydrated, and was reporting blurred vision. She sees a neurologist, waste treatment operator, physical therapist. She requested IV fluids. These were administered. Is to f/u with PCP and specialists, return for emergent concerns. Normal neuro exam. no focal deficits. Departure Time of Disposition: 16:21 Disposition: 01 HOME / SELF CARE / HOMELESS Impression: Primary Impression: Dizziness Additional Impression: Blurred vision, bilateral Condition: Stable Discharge Instructions: Blurred Vision, Adult, Dizziness Additional Instructions: Please see your various specialists as planned for ongoing care. Discuss topiramate for headache prevention with your neurologist as you may benefit from a different medication for headache prevention due to your report of insomnia with topiramate. Stay well hydrated. See eye doctor for eye exam. Consider requesting a referral to a counselor as all your health conditions are likely causing anxiety and you'd benefit from therapy and/or medical management of anxiety. Discuss with your PCP. Return for any emergent concerns. Referrals: NO PRIMARY CARE PROVIDER (PCP) Education Educated: Patient Educated regarding: diagnosis, treatment, prognosis, need for follow up Signature Scribe Signature: no scribe Attestation: The note accurately reflects work and decisions made by me.Nisha Agee - JHON 03/13/25 16:24 GLORIA JACKSON INSURANCE PROFESSIONAL Mar 13, 2025 15:26 NISHA AGEE NP Mar 13, 2025 15:36
[2025-03-13] MEDS: normal saline 1000ml 1,000 ML IV ONE (16:08)
== END 2025-03-13 17:14 | disposition home or self-care (01) ==
LOC: ER 15:11
DX: R42 Dizziness and giddiness (principal); H53.8 Other visual disturbances; K21.9 Gastro-esophageal reflux disease without esophagitis; Z79.899 Other long term (current) drug therapy; Z60.2 Problems related to living alone
CPT/HCPCS: 96360; 99283; J7030

== ENCOUNTER 2025-04-08 09:24 | Emergency (ER) | payer MEDICARE, MEDICAID ==
[~2025-04-08] VITALS: Ht 157.5 cm; Wt 56.7 kg
--- NOTE | 2025-04-08 10:07 | Physician Documentation ---
History of Present Illness ~ Chief Complaint: Toe pain Stated Complaint: TOE PAIN Time Seen by MD: 09:29 Primary Medical Doctor: herson rodriguez in [facility] 34-year-old female with chief complaint injury to her right nail plate. She states that the nail plate on her big toe got caught when she was negative working in her yd in was partially ripped off. She was not sure if she should have the rest of the nail plate removed. She denies any pain. No pre arrival treatment. She states she is able to move her toe normally. Tetanus witin 5 years: Yes (2024) Medication Reconciliation Allergies: Coded Allergies: No Known Allergies (Unverified , 12/29/24) Scheduled Cyclobenzaprine* (Cyclobenzaprine*), 1 TAB PO Q8H Gabapentin (Gabapentin), 1 CAP PO Q8H Methocarbamol (Methocarbamol), 1 TAB PO Q8H Methocarbamol (Methocarbamol), 1 TAB PO Q8H Methylprednisolone (Medrol Dosepak), 0 PO UD Prednisone (Prednisone), 1 TABLET PO QID, (Reported) Prednisone (Prednisone), 50 MG PO DAILY Prednisone (Prednisone), 1 TAB PO DAILY Scheduled PRN Ibuprofen (Ibu), 1 TAB PO Q4HPRN PRN for pain Past Medical History Past Medical History: *CARDIOVASCULAR*, Pneumonia, *GI/HEPATOBILIARY*, GERD, *MUSCULOSKELETAL*, Chronic Back Pain Past Surgical History: other Other Past Surgical History: Nasal surgery Alcohol Use: None Drug Use: none Lives with: Family, Alone Lives In: Home Review of Systems All Other Systems at this time: Reviewed and Negative Physical Exam Vital Signs: Temperature: 98.9, Source: Oral, Heart Rate: 46, Respiratory Rate: 16, BP: 113/73, Pulse Oximetry: 100, Weight: 56.700 Oxygen Flow Rate: 0 Physical Exam General Appearance: Alert, WD/WN. NAD. HEENT: NCAT, PERRL, EOMI. Neck: Supple, trachea midline. PV: pedal pulses 2+ bilaterally. Lungs: Breathing unlabored Extremities: Normal inspection. No edema. Skin: Warm/dry, normal color. Right nail plate is only attached at base of toe. no erythema. arom of toe is full. Neurological: Alert and oriented x4, normal gait. Psychiatric: Affect congruent with mood. Progress Results/Orders Results/Orders Vital Signs 04/08/25 09:34 Temp 98.9 Pulse 46 Resp 16 B/P (MAP) 113/73 Pulse Ox 100 O2 Flow Rate 0 Medical Decision Making Toe Diff Dx:Considerations: Include: Abrasion, Cellulitis, Contusion, Dislocation, Felon, Fracture, Hematoma, Laceration, Neurovascular injury, Open fracture, Paronychia, Subungual hematoma Departure Time of Disposition: 10:08 Disposition: 01 HOME / SELF CARE / HOMELESS Impression: Primary Impression: Nail plate separation Condition: Stable Discharge Instructions: General Discharge Instructions Additional Instructions: tape nail like we did here and will eventually fall off on it's own. Referrals: NO PRIMARY CARE PROVIDER (PCP) Education Educated: Patient Educated regarding: diagnosis, treatment, need for follow up Signature Scribe Signature: x Attestation: FEDERICO Whitman Apr 08, 2025 10:07
[2025-04-08 10:20] VITALS: BP 116/70; PULSE 50; RESP 16; TEMP 98.9; O2SAT 99
== END 2025-04-08 10:19 | disposition home or self-care (01) ==
LOC: ER 09:24
DX: L60.1 Onycholysis (principal)
CPT/HCPCS: 99282

== ENCOUNTER 2025-07-19 12:18 | Emergency (ER) | payer MEDICARE, MEDICAID ==
[~2025-07-19] VITALS: Ht 157.5 cm; Wt 58.4 kg
[2025-07-19 12:27] VITALS: BP 120/71; PULSE 57; RESP 16; TEMP 97.8; O2SAT 100
[2025-07-19] MEDS ORDERED: AMOX500C2 PO (13:00)
--- NOTE | 2025-07-19 13:00 | Physician Documentation ---
HPI ~ General Chief Complaint: Tooth Problem Stated Complaint: TOOTH PAIN Time Seen by MD: 12:22 Primary Medical Doctor: STEVE MCCRARY History of Present Illness HPI Comment He will complaints for a tooth infection in her upper tooth region in his requesting oral antibiotics. States that her dentist was not able to see her and suggested to come to the ER for antibiotic Day of Onset: Jul 19, 2025 Medication Reconciliation Allergies: Coded Allergies: No Known Allergies (Unverified , 07/19/25) Scheduled Amoxicillin Trihydrate* (Amoxicillin*), 1 CAP PO Q8H Cyclobenzaprine* (Cyclobenzaprine*), 1 TAB PO Q8H Gabapentin (Gabapentin), 1 CAP PO Q8H Methocarbamol (Methocarbamol), 1 TAB PO Q8H Methocarbamol (Methocarbamol), 1 TAB PO Q8H Methylprednisolone (Medrol Dosepak), 0 PO UD Prednisone (Prednisone), 1 TABLET PO QID, (Reported) Prednisone (Prednisone), 50 MG PO DAILY Prednisone (Prednisone), 1 TAB PO DAILY Scheduled PRN Ibuprofen (Ibu), 1 TAB PO Q4HPRN PRN for pain Past Medical History Past Medical History: *CARDIOVASCULAR*, Pneumonia, *GI/HEPATOBILIARY*, GERD, *MUSCULOSKELETAL*, Chronic Back Pain Past Surgical History: other Other Past Surgical History: Nasal surgery Alcohol Use: None Drug Use: none Lives with: Family, Alone Lives In: Home Review of Systems All Other Systems at this time: Reviewed and Negative ROS As stated above in the HPI, otherwise all systems are reviewed and negative. Physical Exam Vital Signs: Temperature: 97.8, Source: Oral, Heart Rate: 57, Respiratory Rate: 16, BP: 120/71, Pulse Oximetry: 100, Weight: 58.400 Oxygen Flow Rate: 0 Physical Exam General: Alert, no apparent distress. HEENT: PERRL, EOMI, no injection, moist mucous membranes. Poor dentition throughout Neck: Full range of motion. Respiratory: Lungs clear, no respiratory distress. Neurologic: Oriented x4. Psychiatric: Normal mood and affect. Skin: Normal color, warm and dry. No edema, no ecchymosis. Progress Results/Orders Results/Orders Vital Signs 07/19/25 12:27 Temp 97.8 Pulse 57 Resp 16 B/P (MAP) 120/71 Pulse Ox 100 O2 Flow Rate 0 Medical Decision Making Additional information obtaine: old records Findings Treating empirically for a suspected tooth infection no evidence of an abscess. That would require drainage Differential Dx:Considerations: Include: Alveolar fracture, Alveolar osteitis, ANUG, Facial Cellulitis, Periapical abscess, Peridontal abscess, Post-extraction bleeding, Pulpitis, Tooth avulsion, Tooth eruption, Tooth Fracture, Trigeminal neuralgia, Tooth subluxation, Other Departure Disposition: HOME / SELF CARE / HOMELESS Impression: Primary Impression: Toothache Condition: Stable Discharge Instructions: Dental Caries, Adult Referrals: NO PRIMARY CARE PROVIDER (PCP) Prescriptions Amoxicillin Trihydrate* (Amoxicillin*) 500 Mg Capsule 1 CAP PO Q8H for 10 Days, #30 CAP Prov: ADELFO HENAO NP 07/19/25 Education Educated: Patient Educated regarding: diagnosis Signature Scribe Signature: 7 Attestation: Scribed for Adelfo Henao Billing Coordinator by Adelfo Alcaraz NP . 07/19/25 16:10 ADELFO HENAO NP Jul 19, 2025 13:00
== END 2025-07-19 13:07 | disposition home or self-care (01) ==
LOC: ER 12:18
DX: K08.89 Other specified disorders of teeth and supporting structures (principal); G89.29 Other chronic pain; K21.9 Gastro-esophageal reflux disease without esophagitis; Z79.899 Other long term (current) drug therapy; Z60.2 Problems related to living alone
CPT/HCPCS: 99283

== ENCOUNTER 2025-09-02 12:56 | Emergency (ER) | payer MEDICARE, MEDICAID ==
[~2025-09-02] VITALS: Ht 167.6 cm; Wt 60.3 kg
[2025-09-02 13:19] VITALS: TEMP 98.3
--- NOTE | 2025-09-02 14:07 | RADIOLOGY REPORT ---
CHEST RADIOGRAPH Indication: SOB Technique: Single frontal view of the chest was obtained COMPARISON: DI CHEST,SINGLE VIEW on DOS: 09/02/24 FINDINGS: Lines and Tubes: None Lungs: Increased interstital prominence. This may represent pulmonary vascular congestion and/or viral pneumonia. Pleura: No effusion.No pneumothorax. Cardiomediastinal contours: Unremarkable Bones: Unremarkable IMPRESSION: Increased interstital prominence. This may represent pulmonary vascular congestion and/or viral pneumonia.
[2025-09-02] MEDS ORDERED: ALPR-624 PO (14:11)
--- NOTE | 2025-09-02 14:12 | Physician Documentation ---
History of Present Illness General Chief Complaint: See Chief Complaint Stated Complaint: TREMORS Time Seen by MD: 13:34 Primary Medical Doctor: STEVE MCCRARY History of Present Illness Initial Comments 35-year-old female who presents to the emergency department for repeated examination of anxiousness chest wall discomfort and upper extremity tremors. Was seen at [facility] yesterday have full comprehensive workup and was prescribed medication which she has not received. hersymptoms are scattered and at times tracking her conversations difficult. Patient's feels that her hydroxyzine is not working. Shared decision-making regarding alternatives of therapy over the weekend. I am not certain how much with the patient's HPI is not fabricated. Medication Reconciliation Allergies: Coded Allergies: No Known Allergies (Unverified , 09/02/25) Scheduled Cyclobenzaprine* (Cyclobenzaprine*), 1 TAB PO Q8H Gabapentin (Gabapentin), 1 CAP PO Q8H Methocarbamol (Methocarbamol), 1 TAB PO Q8H Methocarbamol (Methocarbamol), 1 TAB PO Q8H Methylprednisolone (Medrol Dosepak), 0 PO UD Prednisone (Prednisone), 1 TABLET PO QID, (Reported) Prednisone (Prednisone), 50 MG PO DAILY Prednisone (Prednisone), 1 TAB PO DAILY Scheduled PRN Alprazolam (Xanax), 1 TAB PO TID PRN for anxiety Ibuprofen (Ibu), 1 TAB PO Q4HPRN PRN for pain Past Medical History Past Medical History: *CARDIOVASCULAR*, Pneumonia, *GI/HEPATOBILIARY*, GERD, *MUSCULOSKELETAL*, Chronic Back Pain Past Surgical History: other Other Past Surgical History: Nasal surgery Alcohol Use: None Drug Use: none Lives with: Family, Alone Lives In: Home Review of Systems All Other Systems at this time: Reviewed and Negative ROS See HPI Physical Exam Physical Exam Vital Signs: Temperature: 98.3, Source: Oral, Heart Rate: 69, Respiratory Rate: 18, BP: 134/87, Pulse Oximetry: 100, Weight: 60.300 Oxygen Flow Rate: 0 Progress Results/Orders Results/Orders Orders - ABHISHEK BOLAND PAC Chest,Single View (09/02/25 ) Completed Orders - ABHISHEK BOLAND PAC Chest,Single View (09/02/25 ) Vital Signs 09/02/25 09/02/25 13:19 14:22 Temp 98.3 Pulse 69 59 Resp 18 14 B/P (MAP) 134/87 132/82 Pulse Ox 100 98 O2 Flow Rate 0 Medical Decision Making Additional information obtaine: old records (Reviewed several discharge packets that include discharge diagnosis medications and labs.) Findings Will trial Xanax over the weekend until she sees her primary care physician on Friday for suspected anxiousness. Do not suspect an acute viral or bacterial process despite x-ray imaging. There was no shortness a breath and/or malaise or productive sputum. Differential Diagnosis Fictitious disorder as, anxiousness, autoimmune etiologies infectious etiologies Departure Disposition: HOME / SELF CARE / HOMELESS Impression: Primary Impression: Anxiety Condition: Stable Additional Instructions: Please trial medication as directed and keep your scheduled follow up with your Doctor on Friday for further evaluation. Have a good [place] Referrals: NO PRIMARY CARE PROVIDER (PCP) Prescriptions Alprazolam (XANAX) 0.5 Mg Tablet 1 TAB PO TID PRN for anxiety for 3 Days, #9 TAB 0 Refills Prov: ABHISHEK BOLAND 09/02/25 Education Educated: Patient Educated regarding: diagnosis, treatment, prognosis, need for follow up Signature Scribe Signature: . Attestation: . ABHISHEK BOLAND Sep 02, 2025 14:12
[2025-09-02 14:22] VITALS: BP 132/82; PULSE 59; RESP 14; O2SAT 98
== END 2025-09-02 14:24 | disposition home or self-care (01) ==
LOC: ER 12:57
DX: F41.9 Anxiety disorder, unspecified (principal); K21.9 Gastro-esophageal reflux disease without esophagitis; G89.29 Other chronic pain; Z87.01 Personal history of pneumonia (recurrent); Z79.899 Other long term (current) drug therapy; Z60.2 Problems related to living alone
CPT/HCPCS: 71045; 99283